=== PATIENT | female | born 1990 | race Caucasian/White ===

== ENCOUNTER → 2023-12-17 15:46 | Outpatient (REF) | payer OTHER, SELFPAY | LOC: RAD 15:46 | PROVIDERS: ATTENDING PHYSICIAN Nurse Practitioner Family | DX: M25.561 Pain in right knee (principal); M25.562 Pain in left knee | CPT/HCPCS: 73564 ==

== ENCOUNTER → 2024-01-27 20:19 | Outpatient (REF) | payer OTHER, SELFPAY | LOC: MRI 3T 20:19 | PROVIDERS: ATTENDING PHYSICIAN Nurse Practitioner Family | DX: R51.9 Headache, unspecified (principal) | CPT/HCPCS: 70553; A9575 ==